=== PATIENT | male | born 1995 | race Hispanic/Latino ===

== ENCOUNTER 2020-10-14 14:41 | Emergency (ER) | payer SELFPAY ==
--- NOTE | ~2020-10-14 | XR_ITS ---
EXAMINATION: XR hand LT 2V DATE: 10/14/2020 16:31 INDICATION: Foreign body removal TECHNIQUE: Posteroanterior and lateral views of the left hand were obtained. COMPARISON: 10/14/2020 at 3:09 PM FINDINGS: The screw previously injected over the soft tissues at the dorsum of the hand has been removed. No re tained foreign bodies. Bone alignment is normal. No fracture. Joint spaces are normal. IMPRESSION: 1. No retained foreign bodies or osseous abnormality post removal of a screw from the dorsum of the l eft hand. Reviewed, dictated and finalized at location B. [employer] IMPRESSION: 1. No retained foreign bodies or osseous abnormality post removal of a screw fr om the dorsum of the left hand.
--- NOTE | ~2020-10-14 | XR_ITS ---
EXAMINATION: XR hand LT min 3V DATE: 10/14/2020 15:12 INDICATION: Left hand foreign body. TECHNIQUE: 3 views of left hand were obtained. COMPARISON: None. FINDINGS: Bone alignment is normal. No fracture. Joint spaces are well maintained. There is a screw i n the dorsal soft tissues. IMPRESSION: 1. Screw in the dorsal soft tissues. Reviewed, dictated and finalized at location A. [employer]
[2020-10-14 14:43] VITALS: BP 147/73; PULSE 75; RESP 18; TEMP 36; O2SAT 100
--- NOTE | 2020-10-14 16:24 | ED.UPPEXIN ---
HPI - Extremity Injury (Upper) General Chief Complaint: Extremity Injury, Upper Stated Complaint: screw in left hand Time Seen by Provider: 10/14/20 15:43 Source: patient Mode of arrival: ambulatory Limitations: no limitations History of Present Illness HPI narrative: This is a 25-year-old male that presents the emergency department for foreign body in the left hand. Reports he was at work and they were hanging drywall. Reports his friend was using the driver's license reviewing officer and he accidentally drove a screw into his left hand. Reports pain in the area. Reports he is up-to-date on tetanus. Denies decreased range of motion or numbness. Related Data Allergies Allergy/AdvReac Type Severity Reaction Status Date / Time No Known Allergies Allergy Verified 10/14/20 14:47 Review of Systems Review of Systems: Narrative: CONSTITUTIONAL: Denies fever SKIN: Reports foreign body MUSCULOSKELETAL: Denies joint pain, or myalgia. NEUROLOGIC: Denies numbness All systems reviewed & are unremarkable except as noted in HPI and below PMFSH Family History Family History (Updated 06/29/14 @ 09:24 by DOCTOR UNKNOWN) Other Family history of alcoholism Family history of arthritis Family history of seizure disorder Hypertension Social History Social History Smoking status: Never smoker Alcohol intake: current Gender identity (if verbalized by the patient): Male Exam Narrative: Exam Narrative: GENERAL: Well-appearing, well-nourished, and in no acute distress. HEAD: Normocephalic, atraumatic. EYES: EOMI. EXTREMITIES: Normal range of motion. No edema. Normal sensation. Normal radial pulses. Left hand dorsal surface with screw in the soft tissue SKIN: Warm, dry, no rash. NEURO: No focal deficits. Alert and oriented x3. PSYCH: Normal mood and affect Course Vital Signs Vital signs: Vital Signs Temperature 96.8 F L 10/14/20 14:43 Pulse Rate 75 10/14/20 14:43 Respiratory Rate 18 10/14/20 14:43 Blood Pressure 147/73 H 10/14/20 14:43 Pulse Oximetry 100 10/14/20 14:43 Temperature 96.8 F L 10/14/20 14:43 Pulse Rate 75 10/14/20 14:43 Respiratory Rate 18 10/14/20 14:43 Blood Pressure 147/73 H 10/14/20 14:43 Pulse Oximetry 100 10/14/20 14:43 Procedures Foreign Body Removal Foreign Body #1: Foreign Body Removal Date: 10/14/20 Foreign Body Removal Time: 16:26 Site: left Description of foreign body: other (Screw) Technique: manual removal Confirmed by:: direct visualization Complications: none Post-procedure exam: awake, alert Neurovascular: normal distal pulse, normal capillary fill, distal motor function normal and no change from pre-procedure MDM - Extremity Injury (Upper) MDM Narrative Medical decision making narrative: Patient presents to the emergency department for nail in the soft tissue of the left hand. Patient is up-to-date on tetanus. Wound was cleansed and thoroughly irrigated. Nail successfully removed. Post removal x-ray shows no retained foreign bodies or osseous abnormality. Patient has normal range of motion and is neurovascularly intact. Given a dose of Ancef in the ED. Will be sent home on oral antibiotics. Was instructed on wound care. He is to follow-up with primary care doctor. He was given warnings to return to the ER Imaging Data Radiologist's impression: ITS Impressions Hand X-Ray 10/14/20 15:13 IMPRESSION: 1. Screw in the dorsal soft tissues. Hand X-Ray 10/14/20 16:33 IMPRESSION: 1. No retained foreign bodies or osseous abnormality post removal of a screw from the dorsum of the left hand. Critical Care Time Critical Care Time Critical Care Time: No Discharge Plan Discharge Clinical Impression: Foreign body of hand, left Qualifiers: Encounter type: initial encounter Qualified Code(s): S60.552A - Superficial foreign body of left hand, initial encounter Patient Disposition:
[2020-10-14] MEDS: ceFAZolin SODIUM 1 GM VIAL IM (16:36)
[2020-10-14] MEDS: WATER, STERILE FOR INJECTION 10 ML VIAL XX (16:36)
== END 2020-10-14 17:05 | disposition home or self-care (01) ==
PROVIDERS: Emergency Provider Emergency Medicine; Referring Provider Family Medicine
DX: S61.442A Puncture wound with foreign body of left hand, initial encounter (principal); W45.8XXA Other foreign body or object entering through skin, initial encounter
CPT/HCPCS: 73120; 73130; 96372; 99283; J0690